=== PATIENT | male | born 1995 | race African-American/Black ===

== ENCOUNTER 2022-08-20 09:46 | Outpatient (CLI) | payer OTHER, SELFPAY | END 2022-08-20 09:47 | disposition home or self-care (01) | LOC: ANHGOSHLAB 09:49 | PROVIDERS: PCP Internal Medicine; Visit Provider Clinical Nurse Specialist | DX: Z13.220 Encounter for screening for lipoid disorders (principal); Z13.29 Encounter for screening for other suspected endocrine disorder | CPT/HCPCS: 36415 ==